=== PATIENT | female | born 1955 | race American Indian/Alaskan Native ===

== ENCOUNTER 2016-09-05 18:52 | Inpatient (IN) | payer OTHER ==
[2016-09-05 21:44] LABS: Basophils % (Auto) 0.9 % (0.0-1.8); Eosinophils % (Auto) 1.7 % (0.0-4.3); Hematocrit 42.7 % (30.3-42.9); Hemoglobin 13.9 gm/dl (10.1-14.3); Mean Corpuscular HGB Conc 33 % (30-34); Mean Corpuscular Hemoglobin 29 pg (28-32); Mean Corpuscular Volume 89 fl (79-97); Platelet Count 274 K/mm3 (140-440); Red Blood Count 4.79 M/mm3 (3.65-5.03); Red Cell Distribution Width 14.4 % (13.2-15.2); White Blood Count 6.9 K/mm3 (4.5-11.0)
[2016-09-05 22:08] LABS: Anion Gap 15 mmol/L; Blood Urea Nitrogen 15 mg/dL (7-17); Calcium 9.5 mg/dL (8.4-10.2); Carbon Dioxide 27 mmol/L (22-30); Chloride 100.2 mmol/L (98-107); Glucose 99 mg/dL (65-100); Sodium 138 mmol/L (137-145)
[2016-09-06] MEDS ORDERED: NITRO-BID 2% TP ONE (06:43)
[2016-09-06] MEDS ORDERED: NITROSTAT SL PRN (06:43)
--- NOTE | 2016-09-06 06:48 | Emergency Department Report ---
HPI - General Chief Complaint: High BP Time Seen by Provider: 09/06/16 06:34 - HPI HPI: Chief complaint: Hypertension, headache, chest pain HPI: Patient is 61-year-old female with history of hypertension who is not followed by any primary care doctor who has been taking her Benicar that she received from an emergency physician and has noticed that her blood pressure has been high despite taking her blood pressure medication. Patient complains of a headache the last several weeks and intermittent exertional chest pain to her left shoulder and arm. Patient states when she first arrived here last night she did not have chest pain but has developed it in the last hour and a half. Describes it as a dull pain. Patient has facial shortness of breath but is not currently experiencing shortness of breath. Patient states last night her blood pressure was 217/78 and that's why she came to the emergency department. Upon arrival to the emergency department it was 229/105 and subsequently improved to 184/84. Mode of arrival: private car Source: Patient Began: see above Duration: See above. Chest pain is intermittent and at times is sharp and fleeting and other times is dull lasting longer. Context: See above Quality: See above Severity: Currently 3 out of 10 Improved with: Nothing Worsened with: Nothing Associated signs and symptoms: See above. No pedal edema ED Past Medical Hx - Past Medical History Previous Medical History?: Yes Hx Hypertension: Yes - Surgical History Past Surgical History?: Yes Additional Surgical History: cold carrion cone,fibroids,hysterectomy,D&C,and myomectomy - Family History Family history: hypertension, other (mother had a stroke) - Social History Smoking Status: Never Smoker Substance Use Type: None - Medications Home Medications: Home Medications Medication Instructions Recorded Confirmed Last Taken Type Benicar 40 mg PO DAILY 09/05/16 09/05/16 Unknown History ED Review of Systems ROS: Stated complaint: LABORED BREATHING, BP 217/78 Other details as noted in HPI ROS Constitutional: No fever ENT: No uri symptoms Cardiovascular: chest pain Respiratory: No cough GI: No nausea vomiting or diarrhea : No dysuria frequency or urgency, Skin: No rash Neuro: No focal weakness or numbness Psych: No depression José/lymph: No edema Physical Exam - Physical Exam Vital Signs: Vital Signs 09/05/16 09/06/16 20:53 04:59 Temperature 98.2 F 97.8 F Pulse Rate 51 L 51 L Respiratory 20 20 Rate Blood Pressure 184/84 Blood Pressure 229/105 [Left] O2 Sat by Pulse 97 100 Oximetry Physical Exam: GENERAL: The patient is an obese -[place] female no acute distress. HEENT: Normocephalic. Atraumatic. Extraocular motions are intact. Patient has moist mucous membranes. NECK: Supple. No meningitic signs are noted. There is no adenopathy noted. CHEST/LUNGS: Clear to auscultation. There is no respiratory distress noted. HEART/CARDIOVASCULAR: Regular. There is no tachycardia. There is no gallop rub or murmur. ABDOMEN: Abdomen is soft, nontender. Patient has normal bowel sounds. There is no abdominal distention. SKIN: There is no rash. There is trace bilateral pedal edema. There is no diaphoresis. NEURO: The patient is awake, alert, and oriented. The patient is cooperative. The patient has no focal neurologic deficits. The patient has normal speech. MUSCULOSKELETAL: There is no tenderness or deformity. There is no limitation range of motion. There is no evidence of acute injury. ED Course Vital Signs 09/05/16 09/06/16 20:53 04:59 Temperature 98.2 F 97.8 F Pulse Rate 51 L 51 L Respiratory 20 20 Rate Blood Pressure 184/84 Blood Pressure 229/105 [Left] O2 Sat by Pulse 97 100 Oximetry - Reevaluation(s) Reevaluation #1: 09/06/16 06:49 Patient was given sublingual nitroglycerin an inch of nitroglycerin paste and repeat EKG will be performed. The patient will be admitted to the hospitalist. 09/06/16 07:42 Sublingual nitroglycerin improved patient's pain and brought her blood pressure down to 164/72. ED Medical Decision Making - Lab Data Result diagrams: 09/05/16 21:32 09/05/16 21:32 Laboratory Tests 09/06/16 06:52 Troponin T < 0.010 - EKG Data -: EKG Interpreted by Me EKG shows normal: sinus rhythm Rate: bradycardia (54) - EKG Data When compared to previous EKG there are: previous EKG unavailable Interpretation: normal EKG (except for bradycardia) - Radiology Data Radiology results: report reviewed (CT head showed no acute process.) interpreted by me: Chest x-ray shows poor inspiratory effort but no acute process. Critical care attestation.: If time is entered above; I have spent that time in minutes in the direct care of this critically ill patient, excluding procedure time. ED Disposition Clinical Impression: Hypertensive urgency Chest pain Qualifiers: Chest pain type: unspecified Qualified Code(s): R07.9 - Chest pain, unspecified Disposition: OP ADMITTED IP TO THIS HOSP Is pt being admited?: Yes Does the pt Need Aspirin: Yes Condition: Fair Instructions: Chest Pain (ED) Referrals: PRIMARY CARE, [Primary Care Provider] - 3-5 Days Time of Disposition: 07:41 (admit to the hospitalist)
--- NOTE | 2016-09-06 07:32 | Cat Scan Report ---
FINAL REPORT PROCEDURE: CT HEAD/BRAIN WO CON TECHNIQUE: Computerized tomography of the head was performed without contrast material. HISTORY: headache htn COMPARISON: No prior studies are available for comparison. FINDINGS: Skull and scalp: Normal. Paranasal sinuses: Normal. Ventricles and subarachnoid spaces: Normal. Cerebrum: No evidence of hemorrhage, acute infarction or mass . Cerebellum and brainstem: No evidence of hemorrhage, acute infarction or mass. Vasculature: Normal. Comments: None. IMPRESSION: Normal Examination
--- NOTE | 2016-09-06 09:32 | XRay Report ---
ROUTINE CHEST, TWO VIEWS: HISTORY: chest pain. Poor inspiration. The trachea, heart, mediastinal contour, lung esparza and bony thorax are unremarkable. Mild thoracic spondylosis is noted. IMPRESSION: Unremarkable chest x-ray.
--- NOTE | 2016-09-06 09:53 | History and Physical Report ---
History of Present Illness Date of examination: 09/06/16 Date of admission: 09/06/16 07:39 History of present illness: Patient is 61-year-old female with history of hypertension who is not followed by any primary care doctor who has been taking her Benicar that she received from an emergency physician and has noticed that her blood pressure has been high despite taking her blood pressure medication. Patient complains of a headache the last several weeks and intermittent exertional chest pain to her left shoulder and arm. Patient states when she first arrived here last night she did not have chest pain but has developed it in the last hour and a half. Describes it as a dull pain. Patient has facial shortness of breath but is not currently experiencing shortness of breath. Patient states last night her blood pressure was 217/78 and that's why she came to the emergency department. Upon arrival to the emergency department it was 229/105 and subsequently improved to 184/84. Past History Past Medical History: hypertension Medications and Allergies Allergies Allergy/AdvReac Type Severity Reaction Status Date / Time Penicillins Allergy Hives Verified 09/05/16 20:49 aspirin AdvReac Bleeding Verified 09/05/16 20:49 Home Medications Medication Instructions Recorded Confirmed Last Taken Type Benicar 40 mg PO DAILY 09/05/16 09/05/16 Unknown History Active Meds: Active Medications Nitroglycerin (Nitrostat) 0.4 mg SL .Q5MIN PRN PRN Reason: Chest Pain Last Admin: 09/06/16 07:03 Dose: 0.4 mg Review of Systems Cardiovascular: chest pain Exam - Constitutional Vitals: Temp Pulse Resp BP Pulse Ox 97.8 F 50 L 22 170/89 99 09/06/16 04:59 09/06/16 08:21 09/06/16 08:35 09/06/16 08:21 09/06/16 08:35 General appearance: Present: no acute distress - EENT Eyes: Present: PERRL, EOM intact ENT: hearing intact, clear oral mucosa - Neck Neck: Present: supple, normal ROM - Respiratory Respiratory effort: normal Respiratory: bilateral: CTA - Cardiovascular Rhythm: regular Heart Sounds: Present: S1 & S2 - Extremities Extremities: no ischemia, No edema - Abdominal General gastrointestinal: Present: soft, non-tender, non-distended, normal bowel sounds - Musculoskeletal Musculoskeletal: strength equal bilaterally - Psychiatric Psychiatric: appropriate mood/affect, intact judgment & insight - Neurologic Neurologic: CNII-XII intact, moves all extremities Results - Labs CBC & Chem 7: 09/05/16 21:32 09/05/16: Labs: Laboratory Last Values WBC 6.9 K/mm3 (4.5-11.0) 09/05/16 21: RBC 4.79 M/mm3 (3.65-5.03) 09/05/16: Hgb 13.9 gm/dl (10.1-14.3) 09/05/16 21: Hct 42.7 % (30.3-42.9) 09/05/16: MCV 89 fl (79-97) 09/05/16: MCH 29 pg (28-32) 09/05/16: MCHC 33 % (30-34) 09/05/16: RDW 14.4 % (13.2-15.2) 09/05/16: Plt Count 274 K/mm3 (140-440) 09/05/16: Lymph % (Auto) 48.9 % (13.4-35.0) H 09/05/16: [place] % (Auto) 7.4 % (0.0-7.3) H 09/05/16: Eos % (Auto) 1.7 % (0.0-4.3) 09/05/16: Baso % (Auto) 0.9 % (0.0-1.8) 09/05/16: Lymph # 3.4 K/mm3 (1.2-5.4) 09/05/16: [place] # 0.5 K/mm3 (0.0-0.8) 09/05/16: Eos # 0.1 K/mm3 (0.0-0.4) 09/05/16: Baso # 0.1 K/mm3 (0.0-0.1) 09/05/16: Seg Neutrophils % 41.1 % (40.0-70.0) 09/05/16: Seg Neutrophils # 2.8 K/mm3 (1.8-7.7) 09/05/16: Sodium 138 mmol/L (137-145) 09/05/16 21:32 Potassium 4.0 mmol/L (3.6-5.0) 09/05/16 21:32 Chloride 100.2 mmol/L (98-107) 09/05/16 21:32 Carbon Dioxide 27 mmol/L (22-30) 09/05/16 21:32 Anion Gap 15 mmol/L 09/05/16 21:32 BUN 15 mg/dL (7-17) 09/05/16 21:32 Creatinine 1.0 mg/dL (0.7-1.2) 09/05/16 21:32 Estimated GFR > 60 ml/min 09/05/16 21:32 BUN/Creatinine Ratio 15.00 % 09/05/16 21:32 Glucose 99 mg/dL (65-100) 09/05/16 21: Calcium 9.5 mg/dL (8.4-10.2) 09/05/16 21:32 Troponin T < 0.010 ng/mL (0.00-0.029) 09/06/16 06:52 Assessment and Plan - Patient Problems (1) Bradycardia Current Visit: Yes Status: Acute Plan to address problem: Cardiology has been consulted. Will not give beta blockers or calcium channel faby secondary to bradycardia. (2) Chest pain Current Visit: Yes Status: Acute Qualifiers: Chest pain type: unspecified Qualified Code(s): R07.9 - Chest pain, unspecified Plan to address problem: Patient will be admitted to telemetry, cardiology has been consult, will start aspirin. We'll follow troponin T. Lexiscan stress test has been ordered. Will not give beta blockers secondary to patient presenting with bradycardia (3) Hypertensive urgency Current Visit: Yes Status: Acute Plan to address problem: Patient was previously on Benicar. Has not taken the Benicar today. We'll start patient on lisinopril and hydralazine because patient presented with bradycardia. We will continue to monitor blood pressure. She'll be maintained on a low salt diet
[2016-09-06] MEDS: NACL 0.45% 1000 ML 1,000 ML IV SCH ×2 (11:35→21:21)
[2016-09-06] MEDS: ZESTRIL PO SCH (11:45)
[2016-09-06] MEDS: TYLENOL PO PRN ×3 (11:45→21:19)
[2016-09-06] MEDS: APRESOLINE PO SCH ×2 (11:45→21:20)
[2016-09-07] MEDS ORDERED: APRESOLINE PO SCH (07:32)
[2016-09-07] MEDS: ZESTRIL PO SCH (11:06)
[2016-09-07 14:45] VITALS: BP 172/83
--- NOTE | 2016-09-07 15:24 | Discharge Summary ---
Providers - Providers Date of Admission: 09/06/16 07:39 Date of discharge: 09/07/16 Attending physician: TRUDY HARTMANN MD 09/06/16 10:09 Consult to Physician [CONS] Routine Consulting Provider: CHERY MARIN Reason For Exam: CHEST PAIN/ BRADYCARDIA Place consult to:: [facility] Notified:: Stephen BRUNO Phone number called:: Was contact made?: Yes If yes, spoke with:: [employer] [facility] Time called:: 10:53 Primary care physician: [facility] Hospitalization Reason for admission: chest pain Condition: Stable Hospital course: Patient is 61-year-old female with history of hypertension who is not followed by any primary care doctor who has been taking her Benicar that she received from an emergency physician and has noticed that her blood pressure has been high despite taking her blood pressure medication. Patient complains of a headache the last several weeks and intermittent exertional chest pain to her left shoulder and arm. Patient states when she first arrived here last night she did not have chest pain but has developed it in the last hour and a half. Describes it as a dull pain. Patient has facial shortness of breath but is not currently experiencing shortness of breath. Patient states last night her blood pressure was 217/78 and that's why she came to the emergency department. Upon arrival to the emergency department it was 229/105 and subsequently improved to 184/84. Patient reports that the chest pain she's been having on my discussion with her has been going on for a few weeks now. She states that it started when she began exercising. She does not observe the pain. Exercise which exertional but only after she stopped. The pain is reproducible. She did proceed to have a stress test that was negative. We discussed that her on some medications for blood pressure and had excellent blood pressure control. I 've discussed need to give her blood pressure diary and to follow-up with primary care physician. And also to discuss new symptoms Are regular physician as she mentioned she did not discuss this chest pain with her PCP for weeks. Discharge diagnoses (1) Bradycardia (2) Chest pain- costochondritis (3) Hypertensive urgency (4) morbid obesity Disposition: DISCHARGED TO HOME OR SELFCARE Time spent for discharge: 35 mins Core Measure Documentation - Palliative Care Palliative Care/ Comfort Measures: Not Applicable - Core Measures Any of the following diagnoses?: none - VTE Discharge Requirements Deep Vein Thrombosis/Pulmonary Embolism Present on Admission: No Exam - Physical Exam Narrative exam: VITAL SIGNS: Reviewed. GENERAL: The patient appeared well nourished and normally developed. Obese. Vital signs as documented. HEAD: No signs of head trauma. EYES: Pupils are equal. Extraocular motions intact. EARS: Hearing grossly intact. MOUTH: Oropharynx is normal. NECK: No adenopathy, no JVD. CHEST: Chest with clear breath sounds bilaterally. No wheezes, rales, or rhonchi. CARDIAC: Regular rate and rhythm. S1 and S2, without murmurs, gallops, or rubs. VASCULAR: No Edema. Peripheral pulses normal and equal in all extremities. ABDOMEN: Soft, without detectable tenderness. No sign of distention. No rebound or guarding, and no masses palpated. Bowel Sounds normal. MUSCULOSKELETAL: Good range of motion of all major joints. Extremities without clubbing, cyanosis or edema. NEUROLOGIC EXAM: Alert and oriented x 3. No focal sensory or strength deficits. Speech normal. Follows commands. PSYCHIATRIC: Mood normal. SKIN: No rash or lesions. - Constitutional Vitals: Temp Pulse Resp BP Pulse Ox 98.5 F 56 L 16 172/83 100 09/07/16 10:30 09/07/16 10:30 09/07/16 10:30 09/07/16 10:30 09/07/16 10:30 Plan Activity: advance as tolerated, fall precautions Diet: low fat Special Instructions: record daily weights, record daily BP diary, smoking cessation Follow up with: PRIMARY CARE, [Primary Care Provider] - 3-5 Days Prescriptions: hydrALAZINE [Apresoline TAB] 50 mg PO BID #60 tablet Lisinopril [Zestril TAB] 40 mg PO QDAY #30 tablet
--- NOTE | 2016-09-07 21:03 | Consultation ---
History of Present Illness Consult date: 09/07/16 Consult reason: chest pain History of present illness: This patient's a 61-year-old woman who was admitted for chest pain, cardiac consult was requested. Chest pain was nonexertional, atypical. She states that she had a stress test one to 2 years ago which was negative, no prior history of coronary artery disease. On this presentation, serial ECGs were normal sinus rhythm, no ischemic changes. Serial cardiac isoenzyme measurements were normal. This morning, she underwent a stress test ordered by the medical team. She exercised for 7 minutes of a Vitaliy protocol, reaching stage III and achieving 8 METS. There was no chest pain during exercise and no ST changes of ischemia. Subsequent thallium perfusion images were normal. Past History Past Medical History: hypertension Medications and Allergies Allergies Allergy/AdvReac Type Severity Reaction Status Date / Time Penicillins Allergy Hives Verified 09/05/16 20:49 aspirin AdvReac Bleeding Verified 09/05/16 20:49 Home Medications Medication Instructions Recorded Confirmed Last Taken Type Lisinopril [Zestril TAB] 40 mg PO QDAY #30 tablet 09/07/16 Unknown Rx hydrALAZINE [Apresoline TAB] 50 mg PO BID #60 tablet 09/07/16 Unknown Rx Review of Systems Cardiovascular: chest pain, no orthopnea, no palpitations, no rapid/irregular heart beat, no edema, no syncope, no lightheadedness, no shortness of breath Physical Examination Vital Signs Temp Pulse Resp BP Pulse Ox 98.2 F 51 L 20 229/105 97 09/05/16 20:53 09/05/16 20:53 09/05/16 20:53 09/05/16 20:53 09/05/16 20:53 General appearance: no acute distress HEENT: Positive: PERRL Neck: Positive: neck supple Cardiac: Positive: Reg Rate and Rhythm Lungs: Positive: clear to auscultation Neuro: Positive: Grossly Intact Abdomen: Positive: Soft Female genitourinary: deferred Skin: Positive: Clear Extremities: Absent: edema Results 09/05/16 21:32 09/05/16 21:32 EKG interpretations - Telemetry EKG Rhythm: Sinus Rhythm Assessment and Plan - Patient Problems (1) Chest pain Status: Acute Qualifiers: Chest pain type: unspecified Qualified Code(s): R07.9 - Chest pain, unspecified Plan to address problem: Cardiac chest pain workup is negative. Patient is stable for cardiac discharge , recommend outpatient cardiac follow-up in our office in one week.
--- NOTE | 2016-09-07 23:51 | Treadmill Report ---
THALLIUM STRESS TEST LEFT VENTRICLE: Left ventricular chamber size is within normal. Perfusion study demonstrates homogeneous uptake of the tracer in all segments, no significant perfusion defects identified. Gated analysis demonstrates normal left ventricular systolic function, ejection fraction 59%. CONCLUSION: Normal myocardial perfusion study. JOB# [id number] CA/NTS
--- NOTE | 2016-09-08 00:06 | Treadmill Report ---
THALLIUM STRESS TEST LEFT VENTRICLE: Left ventricular chamber size is within normal. Perfusion study demonstrates homogeneous uptake of the tracer in all segments. No significant defects identified. Gated analysis demonstrates normal left ventricular systolic function, ejection fraction greater than 60%. CONCLUSION: Normal myocardial perfusion study. JOB# [id number] CA/NTS
== END 2016-09-07 16:36 | disposition home or self-care (01) | DRG 305 ==
LOC: ED 18:52 → 4A 09-06 07:39
PROVIDERS: ADMIT Internal Medicine; ATTEND Internal Medicine
DX: I16.0 Hypertensive urgency (principal); R07.9 Chest pain, unspecified; R00.1 Bradycardia, unspecified; I10 Essential (primary) hypertension; Z88.0 Allergy status to penicillin; Z88.8 Allergy status to other drugs, medicaments and biological substances; Z90.710 Acquired absence of both cervix and uterus; Z82.49 Family history of ischemic heart disease and other diseases of the circulatory system
CPT/HCPCS: 36415; 70450; 71020; 78452; 80048; 84484; 85025; 93005; 93010; 93017; A9502

== ENCOUNTER 2018-10-17 17:20 | Emergency (ER) | payer OTHER, SELFPAY ==
--- NOTE | 2018-10-17 18:17 | Emergency Department Report ---
Blank Doc - Documentation Documentation: This is a 63-year-old female that presents with right hip and right knee pain s/p fall today. This initial assessment/diagnostic orders/clinical plan/treatment(s) is/are subject to change based on patient's health status, clinical progression and re- assessment by fellow clinical providers in the ED. Further treatment and workup at subsequent clinical providers discretion. Patient/guardians urged not to elope from the ED as their condition may be serious if not clinically assessed and managed. Initial orders include: 1- Patient sent to [facility] for further evaluation and treatment 2- xray
[2018-10-17 18:21] VITALS: BP 144/69
--- NOTE | 2018-10-17 20:35 | XRay Report ---
PROCEDURE: XR HIP 2-3V RT HISTORY: pain FINDINGS: AP view of the pelvis was acquired as well as AP and lateral views of the right hip. No fracture is seen in the pelvis or right hip. Hip joint space appears preserved bilaterally. IMPRESSION: No fracture is seen in the pelvis or right hip This document is electronically signed by Samm Stevens MD., October 17 2018 08:33:25 PM ET
--- NOTE | 2018-10-17 20:36 | XRay Report ---
PROCEDURE: XR KNEE 3V RT HISTORY: pain FINDINGS: AP, lateral and oblique views of the right knee were acquired and demonstrate no fracture o r malalignment of the right knee. There is tricompartmental osteoarthritis most pronounced in the pat ellofemoral compartment. IMPRESSION: Tricompartmental knee osteoarthritis This document is electronically signed by Samm Stevens MD., October 17 2018 08:34:09 PM ET
--- NOTE | 2018-10-17 23:43 | Emergency Department Report ---
ED Extremity Problem HPI - General Chief complaint: Extremity Injury, Lower Stated complaint: RT KNEE INJURY/PAIN Time Seen by Provider: 10/17/18 18:16 Source: patient Mode of arrival: Ambulatory Limitations: No Limitations - History of Present Illness Initial comments: The patient states she had a fall while at work today. 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 The patient denies any CP or dizziness prior to the fall. She denies any numbness or weakness. She was ambulatory after the fall and has been since then. PMHx of HTN. SHe states she has seen an orthopedic doctor previously Dr. Thompson. Severity scale (0 -10): 7 - Related Data Previous Rx's Medication Instructions Recorded Last Taken Type Lisinopril [Zestril TAB] 40 mg PO QDAY #30 tablet 09/07/16 Unknown Rx hydrALAZINE [Apresoline TAB] 50 mg PO BID #60 tablet 09/07/16 Unknown Rx Meloxicam [Mobic] 7.5 mg PO QDAY #20 tablet 10/17/18 Unknown Rx Allergies Allergy/AdvReac Type Severity Reaction Status Date / Time Penicillins Allergy Hives Verified 09/05/16 20:49 aspirin AdvReac Bleeding Verified 09/05/16 20:49 ED Review of Systems ROS: Stated complaint: RT KNEE INJURY/PAIN Other details as noted in HPI Comment: All other systems reviewed and negative ED Past Medical Hx - Past Medical History Hx Hypertension: Yes Hx Congestive Heart Failure: No Hx Diabetes: No Hx Asthma: No Hx COPD: No Hx HIV: No - Surgical History Additional Surgical History: cold carrion cone,fibroids,hysterectomy,D&C,and myom ectomy - Social History Smoking Status: Never Smoker Substance Use Type: None - Medications Home Medications: Home Medications Medication Instructions Recorded Confirmed Last Taken Type Lisinopril [Zestril TAB] 40 mg PO QDAY #30 tablet 09/07/16 Unknown Rx hydrALAZINE [Apresoline TAB] 50 mg PO BID #60 tablet 09/07/16 Unknown Rx Meloxicam [Mobic] 7.5 mg PO QDAY #20 tablet 10/17/18 Unknown Rx ED Physical Exam - General Limitations: No Limitations General appearance: alert, in no apparent distress - Head Head exam: Present: atraumatic, normocephalic - Eye Eye exam: Present: normal appearance - ENT ENT exam: Present: mucous membranes moist - Extremities Exam Extremities exam: Present: full ROM, normal capillary refill, other (no TTP of the right knee, FROM of the right knee with some pain upon flexion, TTP of the right, lateral hip, FROM of the right hip, neurovascularly intact, no joint laxity). Absent: pedal edema, joint swelling - Neurological Exam Neurological exam: Present: alert, oriented X3 - Psychiatric Psychiatric exam: Present: normal affect, normal mood - Skin Skin exam: Present: warm, dry, intact ED Course Vital Signs 10/17/18 18:19 Temperature 98.5 F Pulse Rate 63 Respiratory 16 Rate Blood Pressure 144/69 O2 Sat by Pulse 100 Oximetry ED Medical Decision Making - Radiology Data Radiology results: report reviewed PROCEDURE: XR KNEE 3V RT HISTORY: pain FINDINGS: AP, lateral and oblique views of the right knee were acquired and demonstrate no fracture or malalignment of the right knee. There is tricompartmental osteoarthritis most pronounced in the patellofemoral compartment. IMPRESSION: Tricompartmental knee osteoarthritis This document is electronically signed by Samm Stevens MD., October 17 2018 08:34:09 PM ET Fluoro Time In Minutes: PROCEDURE: XR HIP 2-3V RT HISTORY: pain FINDINGS: AP view of the pelvis was acquired as well as AP and lateral views of the right hip. No fracture is seen in the pelvis or right hip. Hip joint space appears preserved bilaterally. IMPRESSION: No fracture is seen in the pelvis or right hip This document is electronically signed by Samm Stevens MD., October 17 2018 0 8:33:25 PM ET - Medical Decision Making The patient states she had a fall while at work today. 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 The patient denies any CP or dizziness prior to the fall. She denies any numbness or weakness. She was ambulatory after the fall and has been since then. PMHx of HTN. She denies every having any bleeding issues or GI bleed. SHe states she has seen an orthopedic doctor previously Dr. Thompson. XR of the right knee with osteoarthritis no acute process. XR of the right hip with no acute process. pt is neurovascularly intact, has FROM of the right knee and hip, no joint laxity. Will place pt on mobic for osteoarthritis. Discussed with pt to rest, use elevation, and ice. Advised pt to follow up with her orthopedic Dr. Thompson in the next 2-3 days. Return to the ED for any new or worsening symptoms. - Differential Diagnosis fracture, dislocation, strain, sprain Critical care attestation.: If time is entered above; I have spent that time in minutes in the direct care of this critically ill patient, excluding procedure time. ED Disposition Clinical Impression: Right hip pain Osteoarthritis of right knee Qualifiers: Osteoarthritis type: unspecified Qualified Code(s): M17.11 - Unilateral primary osteoarthritis, right knee Fall Qualifiers: Encounter type: initial encounter Qualified Code(s): W19.XXXA - Unspecified fall, initial encounter Disposition: TO HOME OR SELFCARE Is pt being admited?: No Does the pt Need Aspirin: No Condition: Stable Instructions: Osteoarthritis (ED), Arthralgia (ED) Additional Instructions: Please take medication as prescribed. May use rest, use elevation, and ice. Follow up with her orthopedic Dr. Thompson in the next 2-3 days. Return to the ED for any new or worsening symptoms. Prescriptions: Meloxicam [Mobic] 7.5 mg PO QDAY #20 tablet Referrals: FELIPE HUSSEIN MD [Primary Care Provider] - 2-3 Days Time of Disposition: 23:46 Print Language: ARGENTINE
== END 2018-10-17 23:55 | disposition home or self-care (01) ==
LOC: ED 17:20
DX: M17.11 Unilateral primary osteoarthritis, right knee (principal); M25.551 Pain in right hip; Z88.0 Allergy status to penicillin; Z88.6 Allergy status to analgesic agent; W19.XXXA Unspecified fall, initial encounter; Y93.89 Activity, other specified; Y92.69 Other specified industrial and construction area as the place of occurrence of the external cause; Y99.8 Other external cause status

== ENCOUNTER 2019-07-24 09:23 | Emergency (ER) | payer SELFPAY ==
--- NOTE | 2019-07-24 12:31 | Emergency Department Report ---
ED General Adult HPI - General Chief complaint: Headache Stated complaint: HBP/DIZZY Time Seen by Provider: 07/24/19 11:34 Source: patient Mode of arrival: Ambulatory Limitations: No Limitations - History of Present Illness Initial comments: 63-year-old -[place] female patient with history of hypertension presents with complaints of elevated blood pressure and intermittent headaches 4 days. Patient states she has been taking [id number] cold medication for the past few weeks for a cough. She does admit to using phenylephrine. Patient states she has also been out of her amlodipine 10 mg for one month. She rates her headache as a 5/10 in severity and denies thunderclap onset or worst headache of life. Patient also denies any dizziness, vision changes, numbness/tingling/weakness, confusion, difficulty with speech or thought, chest pain, shortness of breath, or hemoptysis. She denies any history of smoking and denies any fever. - Related Data Previous Rx's Medication Instructions Recorded Last Taken Type hydrALAZINE [Apresoline TAB] 50 mg PO BID #60 tablet 09/07/16 Unknown Rx lisinopriL [Zestril TAB] 40 mg PO QDAY #30 tablet 09/07/16 Unknown Rx Meloxicam [Mobic] 7.5 mg PO QDAY #20 tablet 10/17/18 Unknown Rx Benzonatate 200 mg PO TID PRN #30 capsule 07/24/19 Unknown Rx Doxycycline Monohydrate 100 mg PO BID 10 Days #20 capsule 07/24/19 Unknown Rx amLODIPine 10 mg PO DAILY #30 tab 07/24/19 Unknown Rx hydroCHLOROthiazide [HCTZ] 25 mg PO QDAY #30 tablet 07/24/19 Unknown Rx Allergies Allergy/AdvReac Type Severity Reaction Status Date / Time Penicillins Allergy Hives Verified 09/05/16 20:49 aspirin AdvReac Bleeding Verified 09/05/16 20:49 ED Review of Systems ROS: Stated complaint: HBP/DIZZY Other details as noted in HPI Comment: All other systems reviewed and negative Constitutional: chills Respiratory: cough. denies: shortness of breath Neurological: as per HPI ED Past Medical Hx - Past Medical History Previous Medical History?: Yes Hx Hypertension: Yes Hx Congestive Heart Failure: No Hx Diabetes: No Hx Asthma: No Hx COPD: No Hx HIV: No - Surgical History Past Surgical History?: Yes Additional Surgical History: cold carrion cone,fibroids,hysterectomy,D&C,and myomectomy - Social History Smoking Status: Never Smoker Substance Use Type: None - Medications Home Medications: Home Medications Medication Instructions Recorded Confirmed Last Taken Type hydrALAZINE [Apresoline TAB] 50 mg PO BID #60 tablet 09/07/16 Unknown Rx lisinopriL [Zestril TAB] 40 mg PO QDAY #30 tablet 09/07/16 Unknown Rx Meloxicam [Mobic] 7.5 mg PO QDAY #20 tablet 10/17/18 Unknown Rx Benzonatate 200 mg PO TID PRN #30 capsule 07/24/19 Unknown Rx Doxycycline Monohydrate 100 mg PO BID 10 Days #20 capsule 07/24/19 Unknown Rx amLODIPine 10 mg PO DAILY #30 tab 07/24/19 Unknown Rx hydroCHLOROthiazide [HCTZ] 25 mg PO QDAY #30 tablet 07/24/19 Unknown Rx ED Physical Exam - General Limitations: No Limitations General appearance: alert, in no apparent distress - Head Head exam: Present: atraumatic, normocephalic - Eye Eye exam: Present: normal appearance, PERRL. Absent: scleral icterus - ENT ENT exam: Present: normal exam - Neck Neck exam: Present: normal inspection - Respiratory Respiratory exam: Present: normal lung sounds bilaterally, rhonchi (mild bilateral ). Absent: respiratory distress - Cardiovascular Cardiovascular Exam: Present: regular rate, normal rhythm. Absent: systolic murmur, diastolic murmur, rubs, gallop - GI/Abdominal GI/Abdominal exam: Present: soft. Absent: distended, tenderness - Extremities Exam Extremities exam: Present: normal inspection - Back Exam Back exam: Present: normal inspection - Neurological Exam Neurological exam: Present: alert, oriented X3, CN II-XII intact, normal gait. Absent: motor sensory deficit - Expanded Neurological Exam Expanded Cerebellar function: Finger to Nose: Normal, Heel to Gregory: Normal, Romberg: Normal Sensory exam: Upper Extremity Light Touch: Normal, Lower Extremity Light Touch: Normal Motor strength exam: RUE: 5, LUE: 5, RLE: 5, LLE: 5 - Psychiatric Psychiatric exam: Present: normal affect, normal mood - Skin Skin exam: Present: warm, dry, intact, normal color. Absent: rash ED Course Vital Signs 07/24/19 07/24/19 09:35 14:05 Temperature 97.4 F L Pulse Rate 59 L 60 Respiratory 16 Rate Blood Pressure 195/84 Blood Pressure 191/69 [Right] O2 Sat by Pulse 96 Oximetry ED Medical Decision Making - Radiology Data Radiology results: report reviewed CHEST 2 VIEWS INDICATION / CLINICAL INFORMATION: cough. COMPARISON: 09/06/2016 FINDINGS: SUPPORT DEVICES: None. HEART / MEDIASTINUM: No significant abnormality. LUNGS / PLEURA: No significant pulmonary or pleural abnormality. No pneu mothorax. ADDITIONAL FINDINGS: Degenerative changes are seen in the mid and lower thoracic spine. IMPRESSION: 1. No acute findings. - Medical Decision Making 63-year-old -[place] female here with complaints of elevated blood pressure and headache for 4 days and cough for the past month. Patient admits to taking 2 different medications that contain phenylephrine for her cough and cold symptoms. Patient also has been out of her amlodipine for the past month. She denies any chest pain, shortness of breath, vision changes, dizziness, or other red flag symptoms. She states her headache is not resolved. Systolic blood pressure remains elevated despite amlodipine orally. Patient instructed to discontinue all products containing phenylephrine. Chest x-ray is negative for acute findings. Mild rhonchi noted on exam. Given the duration the patient's symptoms, we'll treat for bacterial bronchitis. Patient is nontoxic appearing. Pulse ox and heart rate are normal. Recommend follow-up with primary care provider within 2-5 days for recheck and follow-up of blood pressure. Discussed strict return precautions in detail with patient who verbalizes understanding. Critical care attestation.: If time is entered above; I have spent that time in minutes in the direct care of this critically ill patient, excluding procedure time. ED Disposition Clinical Impression: Acute bacterial bronchitis, Uncontrolled hypertension Disposition: [id number] TO HOME OR SELFCARE Is pt being admited?: No Condition: Stable Instructions: Acute Bronchitis (ED), Hypertension (ED) Prescriptions: amLODIPine 10 mg PO DAILY #30 tab Benzonatate 200 mg PO TID PRN #30 capsule PRN Reason: Cough Doxycycline Monohydrate 100 mg PO BID 10 Days #20 capsule hydroCHLOROthiazide [HCTZ] 25 mg PO QDAY #30 tablet Referrals: PRIMARY CARE, [Primary Care Provider] - 3-5 Days
[2019-07-24] MEDS ORDERED: amLODIPine 5 MG TAB PO ONE (13:55)
--- NOTE | 2019-07-24 15:39 | XRay Report ---
CHEST 2 VIEWS INDICATION / CLINICAL INFORMATION: cough. COMPARISON: 09/06/2016 FINDINGS: SUPPORT DEVICES: None. HEART / MEDIASTINUM: No significant abnormality. LUNGS / PLEURA: No significant pulmonary or pleural abnormality. No pneumothorax. ADDITIONAL FINDINGS: Degenerative changes are seen in the mid and lower thoracic spine. IMPRESSION: 1. No acute findings. Signer Name: Abner Dunn MD Signed: 07/24/2019 3:35 PM Workstation Name: [id number]
[2019-07-24] MEDS ORDERED: cloNIDine 0.1 MG TAB PO ONE (16:11)
[2019-07-24] MEDS ORDERED: cloNIDine 0.1 MG TAB ONE (16:13)
[2019-07-24 17:05] VITALS: BP 185/79
== END 2019-07-24 17:06 | disposition home or self-care (01) ==
LOC: ED 09:23
DX: J20.9 Acute bronchitis, unspecified (principal); I10 Essential (primary) hypertension; Z79.899 Other long term (current) drug therapy; Z88.0 Allergy status to penicillin; Z88.6 Allergy status to analgesic agent
CPT/HCPCS: 71046